=== PATIENT | male | born 1975 | race Caucasian/White ===

== ENCOUNTER 2022-10-09 15:59 | Emergency (ER) | payer OTHER ==
[2022-10-09] MEDS ORDERED: Lidocaine 1% (PF) 30 ML VIAL ONE (16:46)
[2022-10-09] MEDS ORDERED: Bacitracin 1 PK ONE (17:31)
== END 2022-10-09 17:45 | disposition home or self-care (01) ==
LOC: NAV ERS 15:59
DX: S61.213A Laceration without foreign body of left middle finger without damage to nail, initial encounter (principal); S61.215A Laceration without foreign body of left ring finger without damage to nail, initial encounter; F17.220 Nicotine dependence, chewing tobacco, uncomplicated; W31.9XXA Contact with unspecified machinery, initial encounter
CPT/HCPCS: 12001; 90471; J2001